=== PATIENT | female | born 1965 | race African-American/Black ===

== ENCOUNTER 2018-08-20 18:56 | Emergency (ER) | payer OTHER ==
[~2018-08-20] VITALS: Ht 172.7 cm; Wt 120.7 kg
[2018-08-20] MEDS ORDERED: FISH OIL 1,001000 M2 PO (19:07)
[2018-08-20] MEDS ORDERED: CENTRUM SILVER1 EACH PO (19:07)
[2018-08-20 20:10] VITALS: BP 144/92
== END 2018-08-20 20:11 | disposition home or self-care (01) ==
LOC: ER 18:56
DX: S80.01XA Contusion of right knee, initial encounter (principal); S50.811A Abrasion of right forearm, initial encounter; S80.212A Abrasion, left knee, initial encounter; M25.521 Pain in right elbow; M25.461 Effusion, right knee; Z23 Encounter for immunization; V29.49XA Motorcycle driver injured in collision with other motor vehicles in traffic accident, initial encounter; Y93.89 Activity, other specified; Y92.89 Other specified places as the place of occurrence of the external cause; Y99.8 Other external cause status